=== PATIENT | male | born 1995 | race Caucasian/White ===

== ENCOUNTER 2024-01-31 18:28 | Emergency (ER) | payer MEDICAID, SELFPAY ==
[2024-01-31 18:30] VITALS: BP 165/107; PULSE 137; TEMP 37.1; O2SAT 99; BMI 22.4
--- NOTE | 2024-01-31 18:36 | PC.NURSE ---
left side facial swelling at jaw area
--- NOTE | 2024-01-31 18:38 | ED_ITS ---
HPI - Dental/Oral General Chief complaint: Dental/Oral Stated complaint: DENTAL Time Seen by Provider: 01/31/24 18:33 Source: patient Mode of arrival: walk-in History of Present Illness HPI Narrative: 28 year old male presents to the ED for a dental infection, facial swelling. Onset was one week ago with discomfort. The facial swelling has worsened over the past 1-2days. Denies pain currently. Denies fever, chills, SOB, difficulty swallowing. Related Data Home Medications ?Medication ?Instructions ?Recorded ?Confirmed melatonin 10 mg tablet 10 mg PO QPM 01/31/24 01/31/24 Previous Rx's ?Medication ?Instructions ?Recorded clindamycin HCl 300 mg capsule 300 mg PO TID 10 days #30 caps 01/31/24 Allergies Allergy/AdvReac Type Severity Reaction Status Date / Time No Known Drug Allergies Allergy Verified 01/31/24 18:33 Review of Systems ROS Constitutional Denies: fever or chills Ears, nose, mouth, and throat Reports: other (Dental pain, facial swelling); Denies: throat pain, neck pain, throat swelling, difficulty swallowing or swelling of lips/tongue Cardiovascular Denies: chest pain Respiratory Denies: shortness of breath, cough, wheezing or stridor Musculoskeletal Denies: neck pain Neurological Denies: headache, weakness in extremities or dizziness Exam Constitutional Vital Signs, click to edit/add: Last Vital Signs Temp 98.8 F 01/31/24 18:30 Pulse 110 H 01/31/24 19:30 Resp 18 01/31/24 19:30 BP 138/88 01/31/24 19:30 Pulse Ox 100 01/31/24 19:30 O2 Del Method Room Air 01/31/24 19:30 Common normals: no apparent distress and oriented x3 General appearance: cooperative; not ill appearing HENAK Teeth and gingiva: caries and gingiva abnormal Other: Swelling left lower jaw area. Swelling left lower lateral gum tissue. No swelling to floor of mouth. Pt speaking in full sentences, handling secretions well. Eye Common normals: conjunctivae normal and no scleral icterus Neck & C-Spine Common normals: supple Chest Chest: symmetrical chest wall rise Respiratory Common normals: normal respiratory effort Effort & inspection: able to speak in complete sentences Cardio Common normals: regular rhythm Neuro Common normals: oriented x3 Sensorium/orientation: awake and alert Speech: speech normal Course Vital Signs Vital signs: Vital Signs Temperature 98.8 F 01/31/24 18:30 Pulse Rate 137 H 01/31/24 18:30 Respiratory Rate 20 01/31/24 18:30 Blood Pressure 165/107 H 01/31/24 18:30 Pulse Oximetry 99 01/31/24 18:30 Oxygen Delivery Method Room Air 01/31/24 18:30 Temperature 98.8 F 01/31/24 18:30 Pulse Rate 110 H 01/31/24 19:30 Respiratory Rate 18 01/31/24 19:30 Blood Pressure 138/88 01/31/24 19:30 Pulse Oximetry 100 01/31/24 19:30 Oxygen Delivery Method Room Air 01/31/24 19:30 MDM - Dental/Oral MDM Narrative Medical decision making narrative: The patient was given IV clindamycin. WBC count was 15.3. A #21G needle was used to I and D the area. A small amount of bloody drainage was expressed from the gum tissue. He tolerated it well. Gauze was placed. A prescription was provided for clindamycin. He took Aleve at home this morning. Follow up with a dentist for a recheck, further evaluation and treatment. Return precautions were discussed. Differential Diagnosis Differential diagnosis: Likely gingival abscess, dental caries, toothache and dental abscess Medical Records Attestation: I reviewed the patient's medical records. Lab Data Attestation: I reviewed the patient's lab results. Labs: Lab Results 01/31/24 Range/Units 18:39 WBC 15.3 H (4.0-11.0) 10^3/uL RBC 4.70 (4.70-6.10) 10^6/uL Hgb 14.5 (14.0-18.0) g/dL Hct 40.7 L (42.0-54.0) % MCV 86.6 (80.0-94.0) fL MCH 30.9 (25.9-34.0) pg MCHC 35.6 H (29.9-35.2) g/dL RDW 11.9 (11.0-15.0) % Plt Count 355 (150-450) 10^3/uL MPV 10.1 (9.5-13.5) fL Neut % (Auto) 74.1 (43.0-75.0) % Lymph % (Auto) 18.3 L (20.5-60.0) % Edwards % (Auto) 6.3 (1.7-12.0) % Eos % (Auto) 0.5 L (0.9-7.0) % Baso % (Auto) 0.5 (0.2-2.0) % Neut # (Auto) 11.4 H (1.4-6.5) 10^3/uL Lymph # (Auto) 2.8 (1.2-3.8) 10^3/uL Edwards # (Auto) 1.0 H (0.3-0.8) 10^3/uL Eos # (Auto) 0.1 (0.0-0.7) 10^3/uL Baso # (Auto) 0.1 (0.0-0.1) 10^3/uL Abs Immat Gran (auto) 0.04 H (0.00-0.03) 10^3/uL Imm/Tot Granulo (auto) 0.3 (0.0-0.5) % Sodium 138 (136-145) mmol/L Potassium 3.3 L (3.5-5.1) mmol/L Chloride 100 (98-107) mmol/L Carbon Dioxide 25.5 (21.0-32.0) mmol/L Anion Gap 15.8 BUN 11.0 (7.0-18.0) mg/dL Creatinine 1.10 (0.70-1.30) mg/dL Est GFR ( Amer) >60 (>=60) Est GFR (Non-Af Amer) >60 (>=60) BUN/Creatinine Ratio 10.0 Glucose 148 H (74-106) mg/dL Calcium 9.4 (8.5-10.1) mg/dL Discharge Plan Discharge Stand Alone Forms: Portal Instructions Chief Complaint: Dental/Oral Clinical Impression: Dental abscess Patient Disposition: Home, Self-Care Time of Disposition Decision: 19:20 Condition: Good Mode of Transportation: Private Vehicle Prescriptions / Home Meds: New clindamycin HCl 300 mg capsule 300 mg PO TID 10 Days Qty: 30 0RF No Action melatonin 10 mg tablet 10 mg PO QPM Print Language: Luxembourgish Instructions: Dental Abscess (ED) Additional Instructions: Return to the ER for new or worsening symptoms. Referrals: Physician,Non-Staff, MD [Primary Care Provider] - 1 week Discharge Date/Time: 01/31/24 19:30
[2024-01-31 18:48] LABS: Basophils Absolute Auto 0.1 10^3/uL (0.0-0.1); Basophils Percent Auto 0.5 % (0.2-2.0); Eosinophils Absolute Auto 0.1 10^3/uL (0.0-0.7); Eosinophils Percent Auto 0.5 % (0.9-7.0); Hematocrit 40.7 % (42.0-54.0); Hemoglobin 14.5 g/dL (14.0-18.0); Immature Granulocytes Abs Auto 0.04 10^3/uL (0.00-0.03); Immature Granulocytes Pct Auto 0.3 % (0.0-0.5); Lymphocytes Absolute Auto 2.8 10^3/uL (1.2-3.8); Lymphocytes Percent Auto 18.3 % (20.5-60.0); Mean Corpuscular HGB Conc 35.6 g/dL (29.9-35.2); Mean Corpuscular Hemoglobin 30.9 pg (25.9-34.0); Mean Corpuscular Volume 86.6 fL (80.0-94.0); Mean Platelet Volume 10.1 fL (9.5-13.5); Monocytes Percent Auto 6.3 % (1.7-12.0); Neutrophils Absolute Auto 11.4 10^3/uL (1.4-6.5); Neutrophils Percent Auto 74.1 % (43.0-75.0); Platelet Count 355 10^3/uL (150-450); Red Cell Distribution Width 11.9 % (11.0-15.0); White Blood Count 15.3 10^3/uL (4.0-11.0)
[2024-01-31] MEDS: 0.9 % SODIUM CHLORIDE 1,000 ML 1000 ML IV (18:49)
[2024-01-31] MEDS: CLINDAMYCIN PHOSPHATE/D5W 600 MG/50 ML PIGGYBACK 100 MG IV (18:49)
[2024-01-31 19:01] VITALS: BP 146/90; PULSE 125; O2SAT 100
[2024-01-31 19:07] LABS: Anion Gap 15.8; Calcium 9.4 mg/dL (8.5-10.1); Carbon Dioxide 25.5 mmol/L (21.0-32.0); Chloride 100 mmol/L (98-107); Estimated GFR (African America >60 (>=60); Estimated GFR (Non-African Ame >60 (>=60); Glucose 148 mg/dL (74-106); Potassium 3.3 mmol/L (3.5-5.1); Sodium 138 mmol/L (136-145)
[2024-01-31 19:30] VITALS: BP 138/88; PULSE 110; O2SAT 100
== END 2024-01-31 19:30 | disposition home or self-care (01) ==
PROVIDERS: Nurse Practitioner Family; Emergency Provider Emergency Medicine
DX: K04.7 Periapical abscess without sinus (principal)
CPT/HCPCS: 36415; 41800; 80048; 85025; 96365; 99284